=== PATIENT | female | born 1970 | race Caucasian/White ===

== ENCOUNTER → 2022-11-18 | Outpatient (CLI) | payer SELFPAY ==
--- NOTE | 2022-11-18 11:28 | RAD_ITS ---
INDICATION: LOW BACK PAIN EXAMINATION/TECHNIQUE: X-RAY - XR Spine Lumbar 2 or 3 Views COMPARISON: No comparison. FINDINGS: 3 views of the lumbar spine. BONES: Subtle thoracolumbar serpiginous curvature, positional versus scoliotic. Otherwise, anatomic alignment without evidence of fracture or subluxation. No concerning bony lesion or abnormal sclerosis to suggest lesion. DISCS/JOINTS: No significant degenerative change. SOFT TISSUES: Unremarkable. RAD/Lumbar Spine 2 or 3 Views IMPRESSION: Subtle thoracolumbar serpiginous curvature, positional versus scoliotic. If there is persistent clinical concern for spine fracture and this is a trauma patient, recommend dedicated lumbar spine CT. Electronically Signed: Dustin Castaneda MD at 6:11 EDT ,
== END | disposition home or self-care (01) ==
PROVIDERS: Referring Provider Nurse Practitioner Family; Visit Provider Nurse Practitioner Family
DX: M54.50 Low back pain, unspecified (principal)
CPT/HCPCS: 72100

== ENCOUNTER → 2022-12-02 | Outpatient (CLI) | payer SELFPAY ==
--- NOTE | 2022-12-02 13:01 | CT_ITS ---
INDICATION: LOW BACK PAIN EXAMINATION: CT LUMBAR SPINE - CT Spine Lumbar W/O Contrast Injection TECHNIQUE: Helically acquired images were obtained of the lumbar spine. 2D reformats were reviewed. A radiation dose optimization technique was used for this scan. IV Contrast dosage and agent: None. RADIATION DOSAGE (If Supplied By Facility): CTDIvol = ( 13.82 ) mGy, DLP = ( 346.20 ) mGycm COMPARISON: 11/18/2022 x-ray FINDINGS: VERTEBRAE: No fracture or traumatic subluxation. No discrete lytic or blastic abnormality observed. Normal alignment. DISCS and SPINAL CANAL: Disc heights are preserved. No significant stenosis. Right more than left L4-5 facet arthrosis. No significant neural foraminal stenosis. VISUALIZED ABDOMEN: Visualized abdominal aorta is not dilated. There is no retroperitoneal adenopathy. CT/Spine Lumbar without Contrast IMPRESSION: Bilateral L4-5 facet arthrosis without significant neural foraminal stenosis. No spinal canal stenosis. Electronically Signed: Guy Izaguirre MD at 22:08 EDT ,
== END | disposition home or self-care (01) ==
PROVIDERS: Referring Provider Nurse Practitioner Family; Visit Provider Nurse Practitioner Family
DX: M54.50 Low back pain, unspecified (principal); R93.7 Abnormal findings on diagnostic imaging of other parts of musculoskeletal system
CPT/HCPCS: 72131

== ENCOUNTER 2023-01-06 12:47 | Day surgery (SDC) | payer SELFPAY ==
[2023-01-06 13:17] LABS: Internal QC Validated? YES +Cl - CLEAR BKGD; Pregnancy, Urine Negative Negative
[2023-01-06 13:18] VITALS: BP 118/77; PULSE 82; RESP 16; TEMP 37.5; O2SAT 100; BMI 21.9
[2023-01-06] MEDS: Lactated Ringers 1,000 ML 15 ML IV (13:42)
--- NOTE | 2023-01-06 13:47 | HP.PCM_ITS ---
[facility] - General General Date of Admission: 01/06/23 Date of Service: 01/06/23 Chief Complaint: Screening colonoscopy [facility] Narrative SYDNI PAEZ, is a 52 F who presents today for for screening colonoscopy. She is no abdominal pain. No nausea, vomiting or diarrhea. She does suffer from chronic constipation. Her weight has been stable. Family history with colorectal malignancy or colon polyps. Overall she is in very good health. [facility] Medical History (Updated 12/31/22 @ 14:00 by María Elena Flores) Arthritis Easy bruising Non-smoker Wears glasses Home Medications multivitamin 1 tab PO DAILY 11/10/22 [History Last Taken Unknown] omega-3 240 lr-kud-frw-cod liver oil 1,000 mg-vit A-vit D3 capsule (cod liver oil) 1 cap PO DAILY 11/10/22 [History Last Taken Unknown] Allergy/AdvReac Type Severity Reaction Status Date / Time No Known Allergies Allergy Verified 01/06/23 13:09 Social History (Updated 11/10/22 @ 14:12 by Guerita Kent) current occupational status: employed Smoking Status: Never smoker ROS Review of Systems ROS Unobtainable: other Constitutional Constitutional: Denies fatigue, fever(s), poor appetite, weight gain or weight loss ENT HEENT: Denies mouth lesions Cardiovascular Cardiovascular: Denies abdominal bloating, abdominal edema or abdominal pain Respiratory/Chest Respiratory/Chest: Denies change in mental status, change in phlegm color, chest congestion or chest tightness Gastrointestinal Gastrointestinal: Denies belching, bloating, change in bowel habits, change in stool character, chewing difficulty, coffee ground emesis, constipation, cramping, diarrhea, dyspepsia, dysphagia, early satiety, excessive flatus, fecal incontinence, heartburn, hematemesis, hematochezia, hemorrhoids, loose stools, melena, nausea, odynophagia, rectal bleeding, tenesmus, vomiting or weight changes Genitourinary Genitourinary: Denies abdominal discomfort, burning urination or itching Musculoskeletal Musculoskeletal: Reports as per HPI; Denies muscle weakness or myalgias Integumentary Integumentary: Denies jaundice Neurologic Neurologic: Denies lack of coordination or weakness Psychiatric Psychiatric: Denies confusion, depression, memory loss, mood swings, paranoia or suicidal ideation Endocrine Endocrinology: Denies systems reviewed and no addt'l complaints, except as documented Hematologic/Lymphatic Hematologic/Lymphatic: Denies anemia, easy bleeding, easy bruising or lymphadenopathy Allergic/Immunologic Allergic/Immunologic: Denies systems reviewed and no addt'l complaints, except as documented Vital Signs Vital Signs Vital Signs: 01/06/23 13:18 01/06/23 13:18 Temperature 99.5 F H Temperature Source Temporal Pulse Rate 82 Respiratory Rate 16 Respiratory Pattern Normal Blood Pressure 118/77 Blood Pressure Mean 90 Blood Pressure Source Monitor Blood Pressure Position Semi-Fowlers Blood Pressure Location Right Arm Pulse Ox 100 Oxygen Delivery Method Room Air Weight Weight: 127 lb 13.89 oz Body Mass Index (BMI) 21.9 Results Lab / Micro Data Labs: Laboratory Results - last 24 hr 01/06/23 13:00: Urine Test Negative Assessment & Plan Assessment/Plan (1) Encounter for screening for malignant neoplasm of colon: PLAN: She will undergo elective outpatient colonoscopy. She was explained alternatives, risk, benefits including not withstanding bleeding, infection, sepsis, perforation, need for emergent surgery . She will have an ASA of 2.
[2023-01-06 14:19] VITALS: BP 118/72; BP 98/62; PULSE 68; RESP 16; TEMP 36.4; O2SAT 100
[2023-01-06 14:25] VITALS: BP 101/68; BP 118/72; PULSE 66; RESP 16; O2SAT 100
--- NOTE | 2023-01-06 14:25 | OP.COLON_ITS ---
Patient Name: Telma Guzman Procedure Date: 01/06/2023 1:50 PM Date of : 1970 Age: 52 Procedure: Colonoscopy Indications: Screening for colorectal malignant neoplasm Providers: Leonardo Gagnon DO Medicines: Monitored Anesthesia Care Patient Profile: This is a 52 year old female. Refer to note in patient chart for documentation of history and physical. Last Colonoscopy: none. The patient's first colonoscopy is today. Complications: No immediate complications. Procedure: Pre-Anesthesia Assessment: - Prior to the procedure, a History and Physical was performed, and patient medications and allergies were reviewed. The risks and benefits of the procedure and the sedation options and risks were discussed with the patient. All questions were answered and informed consent was obtained. Patient identification and proposed procedure were verified by the physician in the pre-procedure area. Mental Status Examination: alert and oriented. Airway Examination: normal oropharyngeal airway and neck mobility. Respiratory Examination: clear to auscultation. CV Examination: normal. Prophylactic Antibiotics: The patient does not require prophylactic antibiotics. Prior Anticoagulants: The patient has taken no anticoagulant or antiplatelet agents. ASA Grade Assessment: II - A patient with mild systemic disease. After reviewing the risks and benefits, the patient was deemed in satisfactory condition to undergo the procedure. The anesthesia plan was to use monitored anesthesia care (MAC). Immediately prior to administration of medications, the patient was re-assessed for adequacy to receive sedatives. The heart rate, respiratory rate, oxygen saturations, blood pressure, adequacy of pulmonary ventilation, and response to care were monitored throughout the procedure. The physical status of the patient was re-assessed after the procedure. After I obtained informed consent, the scope was passed under direct vision. Throughout the procedure, the patient's blood pressure, pulse, and oxygen saturations were monitored continuously. The colonoscope was introduced through the anus and advanced to the cecum, identified by appendiceal orifice and ileocecal valve. The colonoscopy was performed without difficulty. The patient tolerated the procedure well. The quality of the bowel preparation was good. The ileocecal valve, appendiceal orifice, and rectum were photographed. Scope In: 1:55:37 PM Scope Withdrawal Time 0 hours 10 minutes 48 seconds Scope Out: 2:14:30 PM Total Procedure Duration Time 0 hours 18 minutes 53 seconds Findings: The perianal and digital rectal examinations were normal. Hemorrhoids were found on perianal exam. Bleeding external and internal hemorrhoids were found during retroflexion. The hemorrhoids were moderate, medium-sized and Grade II (internal hemorrhoids that prolapse but reduce spontaneously). The endoscope was withdrawn. A hemorrhoid was isolated with endoscopy. The ShortShot ligator was positioned over the hemorrhoid at the left lateral position. Suction was applied and one rubber band was placed over the hemorrhoid. This was checked to make certain that the muscularis was free of the band. Post-banding digital rectal exam showed band in good position. The patient appeared stable and comfortable at the end of the procedure. The exam was otherwise without abnormality on direct and retroflexion views. Impression: - Hemorrhoids found on perianal exam. - Bleeding external and internal hemorrhoids. Banded. - The examination was otherwise normal on direct and retroflexion views. - No specimens collected. Recommendation: - Discharge patient to home. - Resume previous diet. - Continue present medications. - Repeat colonoscopy in 10 years for screening purposes. Procedure Code(s): --- Professional --- 09130, Hemorrhoidectomy, internal, by rubber band ligation(s) G0121, Colorectal cancer screening; colonoscopy on individual not meeting criteria for high risk CPT copyright 2021 [employer]. All rights reserved. The codes documented in this report are preliminary and upon pest control service technician review may be revised to meet current compliance requirements. Leonardo Gagnon DO 01/06/2023 2:24:57 PM This report has been signed electronically. Number of Addenda: 0 Note Initiated On: 01/06/2023 1:50 PM
--- NOTE | 2023-01-06 14:25 | OP.CCLET_ITS ---
01/06/2023 Reta Briceño Re : Colonoscopy procedure for Telma Guzman Dear Keyanna This procedure was performed on Friday, January 06, 2023. My impressions and recommendations are as follows: Impressions : - Hemorrhoids found on perianal exam. - Bleeding external and internal hemorrhoids. Banded. - The examination was otherwise normal on direct and retroflexion views. - No specimens collected. Recommendations : - Discharge patient to home. - Resume previous diet. - Continue present medications. - Repeat colonoscopy in 10 years for screening purposes. My findings are described in the full procedure note, which is enclosed. If I can be of further assistance, please feel free to contact me at . Sincerely, Leonardo Friend, 01/06/2023 2:24:57 PM This report has been signed electronically.
[2023-01-06 14:30] VITALS: BP 107/67; BP 118/72; PULSE 65; RESP 16; O2SAT 100
[2023-01-06 14:35] VITALS: BP 110/64; BP 118/72; PULSE 56; RESP 16; TEMP 36.1; O2SAT 100
[2023-01-06 14:57] VITALS: BP 118/72
== END 2023-01-06 14:57 | disposition home or self-care (01) ==
LOC: EN 12:53 → AC 12:55
PROVIDERS: Anesthesiology; Visit Provider Internal Medicine Gastroenterology
PROC: 0DJD8ZZ Inspection of Lower Intestinal Tract, Via Natural or Artificial Opening Endoscopic (ICD-10-PCS; CPT 45378; principal; 2023-01-06 13:55)
DX: Z12.11 Encounter for screening for malignant neoplasm of colon (principal); K64.1 Second degree hemorrhoids; K64.5 Perianal venous thrombosis
CPT/HCPCS: 45398; 81025; J7120; J2405

== ENCOUNTER → 2023-06-30 | Outpatient (CLI) | payer OTHER, SELFPAY ==
[2023-06-30 12:31] LABS: Estradiol 33.5 pg/mL; Follicle Stimulating Hormone 65.6 mIU/mL; Luteinizing Hormone 26.7 mIU/mL
== END | disposition home or self-care (01) ==
LOC: BFHLAB 09:24
PROVIDERS: PCP Nurse Practitioner Family; Visit Provider Nurse Practitioner Family
DX: N95.9 Unspecified menopausal and perimenopausal disorder (principal)
CPT/HCPCS: 36415; 82670; 83001; 83002; 84144; 84403